=== PATIENT | male | born 1980 | race African-American/Black ===

== ENCOUNTER 2019-07-26 18:54 | Emergency (ER) | payer OTHER, SELFPAY ==
[2019-07-26 19:17] VITALS: BP 119/70; PULSE 89; RESP 16; TEMP 36.9; O2SAT 100
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
== END 2019-07-26 19:46 | disposition home or self-care (01) ==
PROVIDERS: Emergency Provider Nurse Practitioner Family
DX: L03.011 Cellulitis of right finger (principal)
CPT/HCPCS: 99203; G0463